=== PATIENT | female | born 1975 | race Caucasian/White ===

== ENCOUNTER 2023-01-09 12:05 | Inpatient (IN) | payer OTHER ==
[2023-01-06 10:43] LABS: HEMOGLOBIN 10.4 g/dL (12.0-15.00); MEAN CORPUSCULAR HGB CONC 31.7 g/dl (32.0-36.0); PLATELET COUNT 427 K/uL (150-450); RED BLOOD COUNT 4.02 M/uL (4.00-6.00); RED CELL DISTRIBUTION WIDTH 14.4 % (11.5-14.5)
[2023-01-06 11:01] LABS: INR 0.95; PARTIAL THROMBOPLASTIN TIME 26.8 SECONDS (22.0-34.0)
[2023-01-06 11:02] LABS: PH,URINE 5.5 (5.0-8.0); URINE APPEARANCE Cloudy; URINE BILIRRUBIN Negative (NEGATIVE); URINE BLOOD Large; URINE COLOR Red; URINE GLUCOSE Negative (NEGATIVE); URINE LEUKOCYTE Small; URINE NITRATE Negative; URINE UROBILINOGEN 0.2 E.U./dl
[2023-01-06 11:07] LABS: URINE BACTERIA 238.1 uL (0.0-1933); URINE EPITHELIAL CELLS 8.8 uL (0.0-38.8)
[2023-01-06 11:10] LABS: BILIRUBIN TOTAL 0.32 mg/dL (0.3-1.2); CALCIUM 9.3 mg/dL (8.5-10.1); CREATININE SERUM 0.75 mg/dL (0.55-1.02); GFR 82.13; GLOBULINA 3.2 G/DL (2.4-3.5); POTASSIUM 4.1 mEq/L (3.5-5.1); TOTAL PROTEIN 7.2 gm/dL (6.4-8.2)
[2023-01-06 11:31] LABS: URINE PROTEIN 100 (NEGATIVE); URINE RBC > 10558.9 uL (0.0-20.8)
[~2023-01-09] VITALS: Ht 170.2 cm; Wt 70.3 kg
[~2023-01-09 12:05] MED LIST: LEVSIN/SL0.125 MG SL
[2023-01-10 09:11] LABS: HEMATOCRIT 29.5 % (36.0-45.00); HEMOGLOBIN 9.3 g/dL (12.0-15.00); MEAN CELL VOLUME 81.9 fL (80.00-100.00); MEAN CORPUSCULAR HEMOGLOBIN 25.9 pg (27.00-32.0); MEAN CORPUSCULAR HGB CONC 31.7 g/dl (32.0-36.0); PLATELET COUNT 379 K/uL (150-450); RED CELL DISTRIBUTION WIDTH 14.6 % (11.5-14.5)
== END 2023-01-10 13:57 | disposition home or self-care (01) | DRG 989 ==
LOC: CIR.AMB 12:05 → O/R 23:00 → OB/GYN 23:00
PROVIDERS: ADMIT Obstetrics & Gynecology Obstetrics; ATTEND Obstetrics & Gynecology Obstetrics
PROC: 0UDB8ZZ Extraction of Endometrium, Via Natural or Artificial Opening Endoscopic (ICD-10-PCS; principal; 2023-01-09 14:15)
DX: D49.59 Neoplasm of unspecified behavior of other genitourinary organ (principal); Z20.822 Contact with and (suspected) exposure to COVID-19

== ENCOUNTER 2023-01-25 10:48 | Outpatient (CLI) | payer OTHER | END 2023-01-25 11:04 | disposition home or self-care (01) | LOC: MRI 10:48 | PROVIDERS: ATTEND Obstetrics & Gynecology Obstetrics | DX: C53.9 Malignant neoplasm of cervix uteri, unspecified (principal) | CPT/HCPCS: 72197 ==

== ENCOUNTER 2023-02-13 07:57 | Outpatient (CLI) | payer OTHER | END 2023-02-13 07:58 | disposition home or self-care (01) | LOC: NUCLEAR 07:57 | DX: C53.8 Malignant neoplasm of overlapping sites of cervix uteri (principal) ==

== ENCOUNTER 2024-07-19 08:30 | Outpatient (CLI) | payer OTHER | END 2024-07-19 08:31 | disposition home or self-care (01) | LOC: NUCLEAR 08:30 | DX: C53.8 Malignant neoplasm of overlapping sites of cervix uteri (principal) ==